=== PATIENT | female | born 1965 | race Caucasian/White ===

== ENCOUNTER 2018-04-13 07:37 | Outpatient (CLI) | payer OTHER, SELFPAY ==
--- NOTE | 2018-04-13 06:00 | DI.RAD_ITS ---
SYMPTOMS/DIAGNOSIS: CERVICAL RADICULOPATHY PAIN CLINIC: Fluoroscopy Time: 2.58 min Fluoroscopy was utilized by Dr. An during the performance of a cervical injection. Please refer to the procedure report for complete details.
[2018-04-13 07:49] VITALS: BP 126/76; PULSE 56; RESP 16; TEMP 35.5; O2SAT 100
[2018-04-13] MEDS: Lactated Ringers 1,000 ML 80 ML IV (08:42)
[2018-04-13] MEDS: Midazolam 2 MG/2 ML VIAL IVP ×3 (08:42→09:06)
[2018-04-13 09:25] VITALS: BP 154/88; PULSE 63; RESP 13; O2SAT 100
[2018-04-13] MEDS: Bupivacaine 0.5% Pres-Free 30 ML VIAL IJ (09:26)
[2018-04-13] MEDS: Omnipaque 240 MG/ML 50 ML BTL IJ (09:27)
[2018-04-13 09:28] VITALS: BP 154/88; PULSE 63; RESP 13; O2SAT 100
[2018-04-13] MEDS: Dexamethasone 10 MG/ML VIAL IJ (09:28)
--- NOTE | 2018-04-13 09:29 | PDOC.PAIN ---
Pain Clinic Procedure Note Current Active Problems Problem Status Onset Cervical radiculopathy at C5 Chronic Cervical selective C4-5 block/Transforaminal CEDRICK SUMMERS has been [facility] for a Selective nerve/transforaminal nerve root block and steroid injection. COMMENTS:Patient's pain was 5/10. She was sent by neurosurgeon for diagnostic block. We discussed the risks and benefits. Patient was interviewed and the medical record reviewed. There were no medical, pharmacologic, radiographic or other structural contraindications to attempting fluoroscopically guided transforaminal nerve root block and epidural steroid injection. Risks and expected side effects as well as potential benefit of the procedure were reviewed and voiced concerns addressed. The printed consent form was signed and witnessed. Standard time-out procedure was performed. Patient was placed in the prone position on the fluoroscopy table and automated blood pressure cuff and pulse oximeter applied. Fluoroscopy was utilized to identify the {right/} neural foramen between C4 and C5 . A skin tsering was made for the needle insertion site. A Chlorhexadine prep was carried out, and sterile drapes were applied. Local anesthesia was achieved in the skin and subcutaneous tissues. A 25 gauge curved tip spinal needle was then inserted, advanced with fluoroscopic guidance into the neural foramen, confirmed on the lateral view. After negative aspiration, 2 ml of Omnipaque 240 was injected confirming position in A/P and lateral views. This showed a good spread of dye transforaminally into the epidural space. There was no vascular update with contrast injection under continuous fluoroscopy and digital substraction. 2.5 mg of dexamethasoneMixed with 0.25 mL's 0.5% bupivacaine for a total of 0.5 mL's was injected, followed by 0.5 ml of 1% Xylocaine flush for the nerve root block, as well. There was no unusual discomfort expressed.The needle was withdrawn. The patient tolerated the procedure well. A Band-Aid was applied. Vital signs were stable throughout the procedure and were as recorded in nursing records. If given, dosages of intravenous drugs for anxiolysis and analgesia were documented in nursing records. Follow up plans and appointments were discussed. Post procedure instruction was given as documented in nursing records and patient was discharged in the care of an identified services delivery driver. COMMENTS: Pain 1/10. She will follow-up for surgery. I have told her if she wanted to try a interlaminar steroid injection with Depo-Medrol this might give her some longer lasting relief if she decides she does not want to have surgery.. CC: HAYDEE PALACIOS
--- NOTE | 2018-04-13 09:35 | PDOC.PAIN_ITS ---
Pain Clinic Procedure Note Current Active Problems Problem Status Onset Cervical radiculopathy at C5 Chronic Cervical selective C4-5 block/Transforaminal CEDRICK SUMMERS has been referred to the [facility] for a Selective nerve/transforaminal nerve root block and steroid injection. COMMENTS:Patient's pain was 5/10. She was sent by neurosurgeon for diagnostic block. We discussed the risks and benefits. Patient was interviewed and the medical record reviewed. There were no medical , pharmacologic, radiographic or other structural contraindications to attempting fluoroscopically guided transforaminal nerve root block and epidural steroid injection. Risks and expected side effects as well as potential benefit of the procedure were reviewed and voiced concerns addressed. The printed consent form was signed and witnessed. Standard time-out procedure was performed. Patient was placed in the prone position on the fluoroscopy table and automated blood pressure cuff and pulse oximeter applied. Fluoroscopy was utilized to identify the {right/} neural foramen between C4 and C5 . A skin tsering was made for the needle insertion site. A Chlorhexadine prep was carried out, and sterile drapes were applied. Local anesthesia was achieved in the skin and subcutaneous tissues. A 25 gauge curved tip spinal needle was then inserted, advanced with fluoroscopic guidance into the neural foramen, confirmed on the lateral view. After negative aspiration, 2 ml of Omnipaque 240 was injected confirming position in A/P and lateral views. This showed a good spread of dye transforaminally into the epidural space. There was no vascular update with contrast injection under continuous fluoroscopy and digital substraction. 2.5 mg of dexamethasoneMixed with 0.25 mL's 0.5% bupivacaine for a total of 0.5 mL's was injected, followed by 0.5 ml of 1% Xylocaine flush for the nerve root block , as well. There was no unusual discomfort expressed.The needle was withdrawn. The patient tolerated the procedure well. A Band-Aid was applied. Vital signs were stable throughout the procedure and were as recorded in nursing records. If given, dosages of intravenous drugs for anxiolysis and analgesia were documented in nursing records. Follow up plans and appointments were discussed. Post procedure instruction was given as documented in nursing records and patient was discharged in the care of an identified stacker driver. COMMENTS: Pain 1/10. She will follow-up for surgery. I have told her if she wanted to try a interlaminar steroid injection with Depo-Medrol this might give her some longer lasting relief if she decides she does not want to have surgery.. CC: HAYDEE PALACIOS
== END 2018-04-13 07:57 ==
PROVIDERS: PCP Family Medicine; Visit Provider Anesthesiology Pain Medicine
DX: M54.12 Radiculopathy, cervical region (principal); G89.29 Other chronic pain
CPT/HCPCS: 64483; 72040; J1100; J2250; J3010; Q9967

== ENCOUNTER 2019-06-29 18:26 | Outpatient (REF) | payer OTHER, SELFPAY ==
[2019-06-29 22:33] LABS: Anion Gap 8.4 mmol/L (3-11); BUN 17 mg/dL (7-18); CO2 30.6 mmol/L (21.0-32.0); CREATININE 0.79 mg/dL (0.55-1.02); Calcium 9.4 mg/dL (8.5-10.1); Chloride 105 mmol/L (98-107); Glucose 104 mg/dL (74-106); Sodium 144 mmol/L (136-145)
[2019-06-29 22:36] LABS: Hemoglobin A1C 5.4 % (4.5-6.2)
== END 2019-06-29 18:46 ==
LOC: NCHCN 18:26
PROVIDERS: PCP Family Medicine; Visit Provider Family Medicine
DX: K62.0 Anal polyp (principal); I10 Essential (primary) hypertension; R73.9 Hyperglycemia, unspecified
CPT/HCPCS: 80048; 83036

== ENCOUNTER 2020-04-04 18:24 | Outpatient (REF) | payer OTHER, SELFPAY ==
[2020-04-04 22:17] LABS: TSH (W/Ref FT4) 2.08 uIU/mL (0.36-3.74)
== END 2020-04-04 18:44 ==
LOC: NCHCN 18:24
PROVIDERS: PCP Family Medicine; Visit Provider Registered Nurse
DX: I10 Essential (primary) hypertension (principal); N95.8 Other specified menopausal and perimenopausal disorders
CPT/HCPCS: 84443

== ENCOUNTER 2021-09-23 19:18 | Outpatient (REF) | payer OTHER, SELFPAY ==
--- OUTSIDE RECORDS SUMMARY | 2021-09-23 19:25 | XMS_ITS | CCD ---
:1965 Author Care Team Providers Name Role Phone Katerine BUCHANAN Attending Physician Unavailable Vital Signs Unknown or Not Available. Allergies Unknown or Not Available. Procedures Unknown or Not Available. History of Immunizations Unknown or Not Available. Problems Unknown or Not Available. Results [facility] COVID RHEONIX* - Collect Date/George e: 07/31/2021 13:06 Test Name Code Test Result Test Units Test Ref Range Tier- STAFF EXPOSURE N/A SARS COV2 RNA: 62844-8 NEGATIVE N/A REFERENCE RAN GE: NEGAT Active Medications Unknown or Not Available. Medications Administered During Visit Unknown or Not Available. Encounters Encounter Diagnosis Diagnosis Code Start Date CONTACT WITH AND SUSPECTED EXPOSURE TO COVID-19 [id number] 07/30/2021 Social History Smoking Status Code Start Date End Date Current some day smoker [id number] Patient Decision Aids Unknown or Not Available. Discharge Instructions You were admitted to [facility] on 07/30/2021 19:53 with a principal diagnosis of Contact with and (suspected ) exposure to COVID-19 You had the following tests done: [facility] COVID RHEONIX* You were discharged from [facility] on 07/30/2021 19:53 Should you have any questions prior to d ischarge, please contact a member of your healthcare team. If you have left the ho spital and have any questions, please contact your primary care physician. Chief Complaint and Reason For Visit Unknown or Not Available. Function Status Unknown or Not Available. Plan of Care Unknown or Not Available. Referral/Transition of Care Unknown or Not Available.
--- OUTSIDE RECORDS SUMMARY | 2021-09-23 19:26 | XMS_ITS ---
:1965 Author Care Team Providers Name Role Phone HAYDEE PALACIOS MD Primary Care Provider [phone] ALEE DELGADILLO MD General Surgeon [phone] Allergies Code Code System Name Reaction Severity Status Onset Wellbutrin Hives ? Active 8 13666 RxNorm Losartan ? ? Active ? Medications Name Status Start Date Stop Date ? ? amlodipine 10 mg tablet Completed ? 07/28/19 20 azithromycin 250 mg tablet Completed ? 07/28 Biofreeze (menthol) 4 % topical gel Completed ? 07/29/2019 apply to right shoulder area as needed not to exceed 4 applications in 24 hrs. celecoxib 100 mg capsule Completed ? 020 Take 1 capsule twice a day by oral route for 90 days. Cenestin 0.625 mg tablet Completed 12/31/2006 015 1 Tablet: QD climara 0.025 mg/24hr ptwk Active ? Not a vailable cyclobenzaprine 5 mg tablet Completed ? 07/20 Depo-Medrol 80 mg/mL suspension for injection Completed ? 07/29/2019 Take 80 mg by injection route. estradiol 0.025 mg/24 hr semiweekly transdermal patch Active ? Not available Apply 1 patch every week by transdermal route. fiber Active ? Not available Take twice a day gabapentin 100 mg caps Completed ? 0 gabapentin 100 mg capsule Active ? Not av ailable Take 1 capsule 3 times a day by oral route as needed. hydrochlorothiazide 25 mg tablet Active ? Not available Take 1 tablet every day by oral route for 90 days. hydrochlorothiazide 25 mg tabs Completed ? 0 09/15/2019 hydrocodone/acetaminophen 5-325 Completed ? 09/15/2019 mgtabs losartan 50 mg tablet Completed ? 07/28/2019 metaxalone 800 mg tablet Completed ? 020 Take 1 tablet every 8 hours by oral route as needed. methylprednisolone 4 mg tablets in Completed ? 07/28/2019 a dose pack [place] 5 mg-325 mg tablet Completed ? 020 Take 1 tablet every 4-6 hours by oral route as needed for 5 day s. ondansetron 4 mg disintegrating Completed ? 07/28/2019 tablet prednisone 10 mg tablet Completed ? 07/28/19 20 Problems Name Status Onset Date Source ? Nicotine Dependence Active 07/28/2019 ? Hypertensive Disorder Active 07/28/2019 ? Cervical Radiculopathy Active 07/28/2019 ? Hyperglycemia Active 07/28/2019 ? Hemorrhoids Active 08/22/2019 ? Fibrocystic Disease of Breast Active ? Hi story Epidermoid Cyst of Skin Active ? History Screening Mammography Active ? History Menopause Present Active ? History Procedures Date Name Performed by ? 08/22/2019 Hemorrhoidectomy Information not avai lable Notes: internal and external hemorrho ids 04/19/2019 Foraminotomy Information not avai lable 04/09/2017 Colonoscopy Information not avai lable Notes: hyperplastic polyp. ? Hysterectomy Information not avai lable ? Orthopedic Surgery Information not avai lable Notes: Back surgery 2000,2001,2003 (f usion of L5 and S1) ? Tonsillectomy Information not avai lable ? Tubal Ligation Information not avai lable Notes: 1992, Dr Salgado 12/01/2017 Unlisted Imaging Order [facility] - Radiology [address] [place] [address] (Work Place) Results Lab Results Date Name Specimen Result Interpretation Description Value Range Status Address ? 12/22/2017 CBC W/ Auto BLD - Wbc 7.3 5.0-10.0 Final [place] [facility] Diff 10*3/uL 10*3/uL Hospital Lab (Internal) : [address] ? ? BLD - Rbc 5.00 4.10-5.[address] [facility] ountry 10*6/uL 10*6/uL Hospital Lab (Internal) : [address] ? ? BLD - Hgb 15.6 g/dL 12.0-16.[address] [facility] Country g/dL Hospital L ab (Internal) : [address] ? ? BLD - Hct 46.0 % 37.0-47.[address] [facility] ount % Hospital L ab (Internal) : [address] ? ? BLD - Mcv 92.0 fL 80.0-96.0 Final [facility] fL Hospital L ab (Internal) : [address] ? ? BLD - Mch 31.2 pg 26.0-32.0 Final [facility] pg Hospital L ab (Internal) : [address] ? ? BLD - Mchc 33.9 g/dL 31.0-35.[address] [facility] h Country g/dL Hospital L ab (Internal) : [address] ? ? BLD - Rdw 12.2 % 11.5-14.[address] [facility] ount % Hospital L ab (Internal) : [address] ? ? BLD - Plt 212 130-450 Final [facility] ntry 10*3/uL 10*3/uL Hospital Lab (Internal) : [address] ? ? BLD - Anc 5.21 ? Final [facility] try 10*3/uL Hospital Lab (Internal) : [address] ? ? BLD - Neutro 71.6 % 40.0-75.0 Final [facility] % Hospital L ab (Internal) : [address], [address] ? ? BLD Low Lymph 17.5 % 20.0-50.[address] [facility] % Hospital L ab (Internal) : [address] ? ? BLD - [place] 9.9 % 2.0-10.0 % Final [facility] Hospital L ab (Internal) : [address], [address] ? ? BLD Low Eos 0.4 % 1.0-6.0 % Final [facility] Hospital L ab (Internal) : [address] ? ? BLD - Baso 0.3 % 0.0-1.0 % Final [facility] Hospital L ab (Internal) : [address] ? ? BLD - Ig 0.3 % 0.0-0.9 % Final [facility] Hospital L ab (Internal) : [address] 12/22/2017 BMP, Serum S - g/r 105 mg/dL 74-106 Final [place] or Plasma mg/dL Hospita l Lab (Internal) : [address] ? ? S - Bun 13 mg/dL 7-17 mg/dL Final [facility] Hospital L ab (Internal) : [address] ? ? S - Crea 0.70 0.52-1.[address] [facility] ountry mg/dL mg/dL Hospital L ab (Internal) : [address] ? ? S - Ca 9.4 mg/dL 8.4-10.2 Final [facility] mg/dL Hospital L ab (Internal) : [address] ? ? S - Na 138 137-145 Final [facility] ntry mmol/L mmol/L Hospital L ab (Internal) : [address] ? ? S - K 3.9 3.5-5.1 Final [facility] ntry mmol/L mmol/L Hospital L ab (Internal) : [address] ? ? S - Cl 99 mmol/L 98-[address] [facility] ountry mmol/L Hospital L ab (Internal) : [address] ? ? S High Tco2 32.0 22.0-30.[address] [facility] ountry mmol/L mmol/L Hospital L ab (Internal) : [address] 12/22/2017 Magnesium, S - mg 2.3 mg/dL 1.6-2.3 Final [facility] QN, Serum mg/dL Hospita l Lab or Plasma ([employer] Administrator al): [address] 04/09/2017 Pathology TISS ? Report results ? Final N orth Country Study below Hospital L ab (Internal) : [address] Past Encounters None recorded. Social History Tobacco Smoking Status Former Smoker Notes: Quit Oc tober 2019 Vaccine List Vaccine Type Td (adult), adsorbed varicella Plan of Care Reminders Provider Appointments None ? ? recorded. Lab None ? ? recorded. Referral None ? ? recorded. Procedures None ? ? recorded. Surgeries None ? ? recorded. Imaging None ? ? recorded. Vitals 09/15/2019 08:45AM Office 15 Height Blood Pressure 161.29 cm 138/88 mm[Hg] 07/29/2019 07:30AM Office 15 Height Weight BMI Blood Pressure 161.29 cm 60.92 kg 23.4 kg/m2 124/76 mm[Hg] 06/29/2019 Height Weight BMI Blood Pressure 161.29 cm 59.78 kg 23 kg/m2 144/92 mm[Hg] 12/01/2017 10:00AM Consult 30 Height Weight BMI Blood Pressure 162.56 cm 62.6 kg 23.7 kg/m2 126/84 mm[Hg] 07/23/2006 Height Weight Blood Pressure 162.56 cm 66.22 kg 112/70 mm[Hg] 11/26/2005 Height Weight Blood Pressure 162.56 cm 62.37 kg 114/78 mm[Hg] 10/27/2005 Weight Blood Pressure 61.69 kg 108/92 mm[Hg] 06/26/2005 Height Weight Blood Pressure 162.56 cm 61.69 kg 104/60 mm[Hg] 05/21/2005 Blood Pressure 140/100 mm[Hg] 02/20/2005 Height Weight Blood Pressure 162.56 cm 65.54 kg 122/80 mm[Hg] 01/23/2005 Height Weight Blood Pressure 162.56 cm 65.32 kg 122/80 mm[Hg] 11/18/2004 Height Weight Blood Pressure 162.56 cm 65.32 kg 130/80 mm[Hg]
--- OUTSIDE RECORDS SUMMARY | 2021-09-23 19:26 | XMS_ITS | CCD ---
:1965 Author Care Team Providers Name Role Phone Katerine BUCHANAN Attending Physician Unavailable Vital Signs Unknown or Not Available. Allergies Unknown or Not Available. Procedures Unknown or Not Available. History of Immunizations Unknown or Not Available. Problems Unknown or Not Available. Results [facility] COVVividCortex FLU RSV GENEXPERT - Collect Date/Time: 09/22/2021 21:43 Test Name Code Test Result Test Units Test Ref Range COVID 34631-8 NEGATIVE N/A Normal: Negativ e INFLUENZA A DNA 27722-1 NEGATIVE N/A Normal: Nega tive INFLUENZA B DNA 17364-0 NEGATIVE N/A Normal: Nega tive RSV DNA 81671-2 NEGATIVE N/A Normal: Negativ e Active Medications Unknown or Not Available. Medications Administered During Visit Unknown or Not Available. Encounters Unknown or Not Available. Social History Smoking Status Code Start Date End Date Current some day smoker [id number] Patient Decision Aids Unknown or Not Available. Discharge Instructions You were admitted to [facility] on 09/22/2021 21:33 You had the following tests done: [facility] COVID FLU RSV GENEXPERT You were discharged from [facility] on 09/22/2021 21:34 Should you have any questions prior to d ischarge, please contact a member of your healthcare team. If you have left the spital and have any questions, please contact your primary care physician. Chief Complaint and Reason For Visit Unknown or Not Available. Function Status Unknown or Not Available. Plan of Care Unknown or Not Available. Referral/Transition of Care Unknown or Not Available.
[2021-09-23 21:44] LABS: Anion Gap 10.6 mmol/L (3-11); BUN 13 mg/dL (7-18); CO2 26.4 mmol/L (21.0-32.0); CREATININE 0.7 mg/dL (0.55-1.02); Calcium 8.9 mg/dL (8.5-10.1); Chloride 102 mmol/L (98-107); Glucose 96 mg/dL (74-106); Potassium 3.5 mmol/L (3.5-5.1); Sodium 139 mmol/L (136-145)
[2021-09-23 21:49] LABS: Hemoglobin A1C 5.4 % (<5.7)
== END 2021-09-23 19:19 | disposition home or self-care (01) ==
LOC: NCHCN 19:18
PROVIDERS: PCP Family Medicine; Visit Provider Family Medicine
DX: I10 Essential (primary) hypertension (principal); Z13.1 Encounter for screening for diabetes mellitus
CPT/HCPCS: 80048; 83036

== ENCOUNTER 2024-06-24 22:26 | Outpatient (REF) | payer OTHER, SELFPAY ==
[2024-06-24 17:41] LABS: BUN 14 mg/dL (7-18); CREATININE 0.9 mg/dL (0.55-1.02); Calcium 9.2 mg/dL (8.5-10.1); Calculated LDL 129 mg/dL (<100); Chloride 105 mmol/L (98-107); Cholesterol 246 mg/dL (<200); Glucose 86 mg/dL (74-106); HDL Cholesterol 106 mg/dL (40-60); Potassium 4.1 mmol/L (3.5-5.1); Sodium 142 mmol/L (136-145); Triglyceride 58 mg/dL (<150)
[2024-06-24 17:42] LABS: Hemoglobin A1C 5.3 % (<5.7)
== END 2024-06-24 22:27 | disposition home or self-care (01) ==
LOC: NCHCN 22:26
PROVIDERS: PCP Family Medicine; Visit Provider Family Medicine
DX: Z13.220 Encounter for screening for lipoid disorders (principal); I10 Essential (primary) hypertension; Z13.1 Encounter for screening for diabetes mellitus
CPT/HCPCS: 80048; 80061; 83036